=== PATIENT | female | born 1965 | race Caucasian/White ===

== ENCOUNTER 2022-04-18 12:08 | Emergency (ER) | payer OTHER ==
[2022-04-18] MEDS ORDERED: Lidocaine 2% PF 5 ML VIAL ONE (13:36)
[2022-04-18] MEDS ORDERED: Ketorolac Tromethamine 30 MG/ML VIAL ONE (13:36)
== END 2022-04-18 15:25 | disposition home or self-care (01) ==
LOC: ERS 12:08
DX: S52.592A Other fractures of lower end of left radius, initial encounter for closed fracture (principal); S52.612A Displaced fracture of left ulna styloid process, initial encounter for closed fracture; W01.0XXA Fall on same level from slipping, tripping and stumbling without subsequent striking against object, initial encounter
CPT/HCPCS: 25605; 96374; J1885; J2001

== ENCOUNTER 2022-04-27 14:12 | Outpatient (CLI) | payer SELFPAY ==
[2022-04-27 15:38] LABS: Hemoglobin 13.3 g/dL (12.0-15.5); Mean Corpuscular HGB CONC 33.8 g/dL (32.0-36.0); Mean Corpuscular Hemoglobin 31.6 pg (27.0-33.0); Mean Corpuscular Volume 93.3 fl (81.6-98.3); Mean Platelet Volume 9.7 fl (7.4-10.4); Platelet Count 324 10x3/uL (150-450); RBC Distribution Width 12.8 % (11.5-14.5); Red Blood Cell (RBC) Count 4.21 10x6/uL (3.90-5.03); White Blood Cell (WBC) Count 6.6 10x3/uL (3.5-10.5)
[2022-04-27 16:15] LABS: Anion Gap 16 mmol/L (10-20); BUN (Urea Nitrogen) 13 mg/dL (9.8-20.1); Calc. Creatinine Clearance 0 mL/min (70-130); Calcium 9.9 mg/dL (7.8-10.44); Carbon Dioxide 23 mmol/L (22-29); Chloride 107 mmol/L (98-107); Estimated GFR 79; Glucose 79 mg/dL (70-105); Sodium 142 mmol/L (136-145)
== END 2022-04-27 14:13 | disposition home or self-care (01) ==
LOC: LABBT 14:12
PROVIDERS: ATTEND Emergency Medicine
DX: Z01.818 Encounter for other preprocedural examination (principal); S52.502A Unspecified fracture of the lower end of left radius, initial encounter for closed fracture; Z20.822 Contact with and (suspected) exposure to COVID-19
CPT/HCPCS: 80048; 85027; 87811; 93005; 93010

== ENCOUNTER 2022-04-29 10:36 | Day surgery (SDC) | payer OTHER ==
[2022-04-28 14:42] VITALS: BMI 21.6
[2022-04-29] MEDS ORDERED: Fentanyl 100 MCG/2 ML VIAL ONE (12:32)
[2022-04-29] MEDS ORDERED: Midazolam HCl 2 mg/2 ml Vial ONE (12:32)
[2022-04-29] MEDS ORDERED: Ondansetron PF 4 MG/2 ML Vial ONE ×2 (12:38→13:01)
[2022-04-29] MEDS ORDERED: Scopolamine 1.5 mg/72 hour Patch ONE (12:38)
[2022-04-29] MEDS ORDERED: CEFAZOLIN 2 GM VIAL ONE (12:55)
[2022-04-29] MEDS ORDERED: Sodium Chloride 0.9% 100 ML ONE (12:55)
[2022-04-29] MEDS ORDERED: Dexamethasone 20 MG/5 ML VIAL ONE (13:01)
[2022-04-29] MEDS ORDERED: Bupivacaine HCl 0.5%/Epinephrine 1:200,000/PF 30 ml Vial ONE (13:01)
[2022-04-29] MEDS ORDERED: PROPOFOL 200 MG/20 ML VIAL ONE (13:01)
[2022-04-29] MEDS ORDERED: Ketorolac Tromethamine 30 MG/ML VIAL ONE (13:01)
[2022-04-29] MEDS ORDERED: ePHEDrine 50 MG/ML VIAL ONE (13:01)
[2022-04-29] MEDS ORDERED: Neomycin-Polymyxin 1 ML AMP ONE (13:35)
== END 2022-04-29 16:10 | disposition home or self-care (01) ==
LOC: SDC 10:36
PROVIDERS: ATTEND Orthopaedic Surgery
PROC: 0PSJ04Z Reposition Left Radius with Internal Fixation Device, Open Approach (ICD-10-PCS; principal; 2022-04-29)
PROC: 3E0T3BZ Introduction of Anesthetic Agent into Peripheral Nerves and Plexi, Percutaneous Approach (ICD-10-PCS; principal; 2022-04-29)
DX: S52.572A Other intraarticular fracture of lower end of left radius, initial encounter for closed fracture (principal); W19.XXXA Unspecified fall, initial encounter
CPT/HCPCS: 76000; C1713; J0690; J1100; J1885; J2250; J2405; J2704; J3010; J3490